=== PATIENT | female | born 1940 | race Caucasian/White ===

== ENCOUNTER 2018-05-05 07:53 | Outpatient (CLI) | payer OTHER ==
[~2018-05-05] VITALS: Ht 152.4 cm; Wt 58.1 kg
== END 2018-05-05 08:10 | disposition home or self-care (01) ==
LOC: OFIC 805 07:53
DX: H93.13 Tinnitus, bilateral (principal); J31.0 Chronic rhinitis; H61.23 Impacted cerumen, bilateral; H90.3 Sensorineural hearing loss, bilateral

== ENCOUNTER 2018-08-05 09:58 | Outpatient (CLI) | payer OTHER | END 2018-08-05 12:08 | disposition home or self-care (01) | LOC: LAB 09:58 | DX: N39.0 Urinary tract infection, site not specified (principal) ==

== ENCOUNTER 2019-10-10 09:04 | Outpatient (CLI) | payer OTHER ==
[~2019-10-10] VITALS: Ht 152.4 cm; Wt 59.0 kg
== END 2019-10-10 14:13 | disposition home or self-care (01) ==
LOC: OFIC 805 09:04
PROVIDERS: ATTEND Otolaryngology
DX: H93.13 Tinnitus, bilateral (principal); J31.0 Chronic rhinitis; H90.3 Sensorineural hearing loss, bilateral

== ENCOUNTER → 2019-11-28 | Outpatient (CLI) | payer OTHER | END | disposition home or self-care (01) | LOC: TOM 13:08 | PROVIDERS: ATTEND Internal Medicine | DX: G44.319 Acute post-traumatic headache, not intractable (principal) ==

== ENCOUNTER → 2020-10-04 | Outpatient (CLI) | payer OTHER | END | disposition home or self-care (01) | LOC: TOM 11:14 | PROVIDERS: ATTEND Internal Medicine | DX: S09.90XA Unspecified injury of head, initial encounter (principal); X58.XXXA Exposure to other specified factors, initial encounter; Y93.89 Activity, other specified; Y92.89 Other specified places as the place of occurrence of the external cause; Y99.8 Other external cause status; M79.12 Myalgia of auxiliary muscles, head and neck; H05.231 Hemorrhage of right orbit ==

== ENCOUNTER → 2022-07-09 | Outpatient (CLI) | payer OTHER | END | disposition home or self-care (01) | LOC: RAD 10:49 | DX: M50.90 Cervical disc disorder, unspecified, unspecified cervical region (principal); M19.011 Primary osteoarthritis, right shoulder; M75.31 Calcific tendinitis of right shoulder; M81.0 Age-related osteoporosis without current pathological fracture; M17.0 Bilateral primary osteoarthritis of knee; M54.59 Other low back pain; M81.8 Other osteoporosis without current pathological fracture ==

== ENCOUNTER 2024-02-12 13:23 | Outpatient (CLI) | payer OTHER ==
[~2024-02-12 13:23] MED LIST: CANDESARTAN CIL32 MG PO; HYDRALAZINE HCL25 MG PO; METRONIDAZOLE500 MG PO; ONDANSETRON ODT4 MG PO
== END 2024-02-12 13:24 | disposition home or self-care (01) ==
LOC: NUCLEAR 13:23
PROVIDERS: ATTEND Internal Medicine
DX: M81.0 Age-related osteoporosis without current pathological fracture (principal)

== ENCOUNTER 2024-06-17 09:22 | Outpatient (CLI) | payer OTHER | END 2024-06-17 09:24 | disposition home or self-care (01) | LOC: TOM 09:22 | PROVIDERS: ATTEND Internal Medicine | DX: S09.90XA Unspecified injury of head, initial encounter (principal); X58.XXXA Exposure to other specified factors, initial encounter; Y93.9 Activity, unspecified; Y92.9 Unspecified place or not applicable; Y99.9 Unspecified external cause status ==